=== PATIENT | male | born 1980 | race Caucasian/White ===

== ENCOUNTER 2021-04-08 07:37 | Emergency (ER) | payer SELFPAY ==
[~2021-04-08 07:37] MED LIST: ASPIRIN EC81 MG PO; ATORVASTATIN CA20 MG PO; BACTRIM DS TAB1 EACH PO; CLOPIDOGREL75 MG PO; ENOXAPARIN60 MG/0.6 SC; KEFLEX CAP 500500 MG PO; LOPRESSOR 25 MG25 MG PO; NICOTINE PATCH1 EAC1 TD; NITROGLYCERIN0.4 MG SL; NORCO 7.5-3251 EACH PO
[2021-04-08 09:14] LABS: HEMOGLOBIN 15.8 gm/dl (14.0-17.5); RED BLOOD COUNT 5.35 M/UL (4.20-5.50)
[2021-04-08 09:34] LABS: BUN/CREATININE RATIO 14 (0-10)
[2021-04-15] MEDS ORDERED: HYDROCODON-ACE1 EAC6 PO (16:54)
== END 2021-04-08 14:14 | disposition home or self-care (01) ==
LOC: ER1 07:37
PROVIDERS: Physician Assistant
DX: S22.32XA Fracture of one rib, left side, initial encounter for closed fracture (principal); S42.032A Displaced fracture of lateral end of left clavicle, initial encounter for closed fracture; F17.200 Nicotine dependence, unspecified, uncomplicated; V19.60XA Unspecified pedal cyclist injured in collision with unspecified motor vehicles in traffic accident, initial encounter
CPT/HCPCS: 71260; 73000; 73564; 80053; 85025; 96374; 96375; 99284; J2270; J2405; Q9967

== ENCOUNTER 2021-04-15 21:47 | Emergency (ER) | payer SELFPAY | END 2021-04-15 22:25 | disposition home or self-care (01) | LOC: ER1 21:47 | DX: G89.18 Other acute postprocedural pain (principal); M54.2 Cervicalgia; F17.210 Nicotine dependence, cigarettes, uncomplicated | CPT/HCPCS: 99283 ==

== ENCOUNTER → 2021-04-15 | Day surgery (SDC) | payer SELFPAY ==
[~2021-04-15] VITALS: Ht 190.5 cm; Wt 63.0 kg
[~2021-04-15] MED LIST changes: +HYDROCODON-ACE1 EAC6 PO
== END | disposition home or self-care (01) ==
LOC: OR 07:36
DX: S42.022A Displaced fracture of shaft of left clavicle, initial encounter for closed fracture (principal); K21.9 Gastro-esophageal reflux disease without esophagitis; F17.210 Nicotine dependence, cigarettes, uncomplicated; Z20.822 Contact with and (suspected) exposure to COVID-19; V00.848A Other accident with standing micro-mobility pedestrian conveyance, initial encounter
CPT/HCPCS: 73000; 76000; C1713; J0690; J1100; J1885; J2001; J2250; J2370; J2405; J2704; J2710; J2795; J3010; J7120; U0002